=== PATIENT | male | born 1985 | race American Indian/Alaskan Native ===

== ENCOUNTER 2020-04-05 04:06 | Emergency (ER) | payer MEDICAID ==
--- NOTE | 2020-04-05 04:36 | EDM.PDOC ---
ED HPI GENERAL MEDICAL PROBLEM - General Chief Complaint: Drug or Alcohol Abuse Stated Complaint: [facility] Time Seen by Provider: 04/05/20 04:09 Source of Information: Reports: Patient, EMS History Limitations: Reports: No Limitations - History of Present Illness INITIAL COMMENTS - FREE TEXT/NARRATIVE: 34-year-old male brought in by EMS after a apparent heroin overdose. He was found unresponsive on the side of the road with his girlfriend, a white powdery substance was being abused. He was unresponsive and not ventilating well, appeared to be somewhat cyanotic and not breathing. 4 mg of nasal Narcan was given by first responders before EMS arrived, by the time they had him in the ambulance he was starting to argue and become somewhat agitated but was breathi ng on his own and oxygenating well. Mcc to the hospital he returned to baseline and was behaving normally, stable. No further treatment was given. Onset: Unknown/Unsure Associated Symptoms: Reports: No Other Symptoms Treatments SUPERINTENDENT OPERATING: Reports: See EMS Report Other Treatments SUPERINTENDENT OPERATING: narcan - Related Data Allergies Allergy/AdvReac Type Severity Reaction Status Date / Time No Known Allergies Allergy Verified 04/05/20 04:09 Home Meds: Home Meds NK [No Known Home Meds] 04/05/20 [History] Social & Family History - Tobacco Use Tobacco Use Status *Q: Current Every Day Tobacco User Years of Tobacco use: 15 Packs/Tins Daily: 0.2 - Recreational Drug Use Recreational Drug Use: Yes Drug Use in Last 12 Months: Yes Recreational Drug Type: Reports: Codiene, Heroin, Marijuana/Hashish, Methamphetamine Recreational Drug Use Frequency: Socially ED ROS GENERAL - Review of Systems Review Of Systems: See Below Constitutional: Denies: Fever, Chills, Malaise HEENT: Denies: Vision Change Respiratory: Denies: Shortness of Breath GI/Abdominal: Denies: Nausea, Vomiting Skin: Reports: No Symptoms Neurological: Reports: Confusion (Initial confusion in EMS resolved in route). Denies: Headache - Physical Exam Exam: See Below Exam Limited By: No Limitations General Appearance: Alert, No Apparent Distress Eye Exam: Bilateral Eye: Normal Inspection Head Exam: Atraumatic Respiratory/Chest: No Respiratory Distress, Lungs Clear Cardiovascular: Regular Rate, Rhythm GI/Abdominal: Soft, Non-Tender Neuro Exam (Abbreviated): Alert, Oriented, No Motor/Sensory Deficits Psychiatric: Normal Affect, Normal Mood Skin Exam: Warm, Dry Course - Vital Signs Last Recorded V/S: Last Vital Signs Temp 96.6 F L 04/05/20 04:19 Pulse 111 H 04/05/20 04:19 Resp 10 L 04/05/20 04:19 BP 182/96 H 04/05/20 04:19 Pulse Ox 94 L 04/05/20 04:19 - Re-Assessments/Exams Free Text/Narrative Re-Assessment/Exam: 04/05/20 05:42 Patient was observed for over 30 minutes and remained stable. His girlfriend arrived to pick him up and he was discharged. Departure - Departure Time of Disposition: 04:35 Disposition: Home, Self-Care 01 Clinical Impression: Heroin adverse reaction - Discharge Information Instructions: Chemical Dependency, Illegal Drug Use Information, Adult, Finding Treatment for Addiction Referrals: PCP,None [Primary Care Provider] - Forms: ED Department Discharge Care Plan Goals: Avoid using illicit drugs in the future. Sepsis Event Note (ED) - Evaluation Sepsis Screening Result: No Definite Risk - Focused Exam Vital Signs: Vital Signs Temp Pulse Resp BP Pulse Ox 04/05/20 04:19 96.6 F L 111 H 10 L 182/96 H 94 L 04/05/20 04:10 96.6 F L 111 H 10 L 182/96 H 94 L
== END 2020-04-05 04:37 | disposition home or self-care (01) ==
LOC: JP.ED 04:06
DX: T40.1X1A Poisoning by heroin, accidental (unintentional), initial encounter (principal); F17.210 Nicotine dependence, cigarettes, uncomplicated
CPT/HCPCS: 99283; 99284